=== PATIENT | male | born 1960 | race Caucasian/White ===

== ENCOUNTER 2019-04-13 13:34 | Emergency (ER) | payer OTHER ==
[2019-04-13] MEDS ORDERED: NS 1,000 ML IV ONE (14:01)
[2019-04-13] MEDS ORDERED: KETOROLAC 30 MG/1 ML SDV IVP ONE (14:01)
[2019-04-13] MEDS ORDERED: METOCLOPRAMIDE 10 MG/2 ML VIAL ONE (14:01)
[2019-04-13] MEDS ORDERED: METOCLOPRAMIDE 10 MG/2 ML VIAL IVP ONE (14:01)
[2019-04-13] MEDS ORDERED: DEXAMETHASONE 10 MG/ML VIAL IVP ONE (14:01)
--- NOTE | 2019-04-13 14:06 | EDPHY ---
H & P Stated Complaint: hx of migraine, migraine since last pm n/v Time Seen by Provider: 04/13/19 13:44 HPI/ROS: CHIEF COMPLAINT: Headache HISTORY OF PRESENT ILLNESS: 58-year-old male visiting for work from [place] complaining of a severe migraine headache for the last 20 hr. Patient states that he has had a long history of what he refers to as migraine headaches. They are bitemporal and retro-orbital headaches that typically improved with Excedrin migraine medications and a good night sleep. He has never visit to the emergency department previously for these headaches. He has not seen Neurology nor has he had any imaging studies previously. He does note that when he was in [place] 5 months ago he also had a significant migraine headache. Reports this headache is the usual character in location and type of pain. However, patient states he has never had 1 that has been persistent and has not had vomiting previously although he has had nausea previously. Patient has light sensitivity. Denies any recent head injury, fevers or chills, neck pain. Denies any shortness of breath. Denies diarrhea. Denies marijuana ingestion. REVIEW OF SYSTEMS: A comprehensive 10 system review of systems was reviewed and is otherwise negative aside from elements mentioned in the history of present illness and medical decision making. PAST MEDICAL HISTORY: Migraine type headaches. SOCIAL HISTORY: Nonsmoker. VITAL SIGNS Reviewed by me. GENERAL: Well-developed, well-nourished, resting in a dark room. Lying with his arm over his eyes. HEENT: Atraumatic. Eyes: PERRL, EOMI, no nystagmus. No icterus. No injection. Mouth: moist mucous membranes. No erythema or lesions. Neck: No meningitis. Nontender to palpation. No adenopathy. Negative Kernig's. Negative Brudzinski's. No meningismus. LUNGS: Clear to auscultation bilaterally, no wheezes, rhonchi or rales. CARDIAC: Regular rate and rhythm, no rubs, murmurs or gallops. ABDOMEN: Soft, nontender, nondistended, bowel sounds normal. BACK: No CVA tenderness. EXTREMITIES: No trauma. No edema. Range of motion is normal throughout. NEURO: Alert and oriented, cranial nerves II through XII are intact. Motor strength 5 over 5 in all major muscle groups. Sensation intact to light touch. Normal gait. SKIN: Warm and dry, no rash. PSYCHIATRIC: Normal mentation, no agitation. - Personal History Current Tetanus/Diphtheria Vaccine: No Current Tetanus Diphtheria and Acellular Pertussis (TDAP): No - Medical/Surgical History Hx Asthma: No Hx Chronic Respiratory Disease: No Hx Diabetes: No Hx Cardiac Disease: No Hx Renal Disease: No Hx Cirrhosis: No Hx Alcoholism: No Hx HIV/AIDS: No Hx Splenectomy or Spleen Trauma: No - Social History Smoking Status: Never smoked Constitutional: Initial Vital Signs Temperature (C) 36.9 C 04/13/19 13:37 Heart Rate 95 04/13/19 13:37 Respiratory Rate 16 04/13/19 13:37 Blood Pressure 162/108 H 04/13/19 13:37 O2 Sat (%) 98 04/13/19 13:37 O2 Delivery Mode Room Air Allergies/Adverse Reactions: tetanus and diphtheria toxoids Allergy (Verified 04/13/19 13:43) Home Medications: Medication Instructions Recorded Hydrocodone/APAP 5/325 [[place] 1 tab PO Q6H PRN #10 tab 04/13/19 5/325 (RX)] Promethazine HCl [Phenergan 12.5mg 12.5 mg PO Q8 PRN #10 tablet 04/13/19 tab] Medical Decision Making - Diagnostics Imaging Results: Imaging Impressions Head CT 04/13/19 14:01 Impression: Normal. Results called and discussed with Latosha Cardenas MD at 04/13/2019 14:35. Imaging: Discussed imaging studies w/ outbound call center representative Radiologist ED Course/Re-evaluation: Patient retching during my examination. IV was placed and patient received Toradol, Reglan, Benadryl, and Decadron. Head CT ordered. Head CT was negative for any acute findings. Patient was reexamined at 2:40 a.m.: Reports he is feeling significantly improved does still have residual headache rated at 4 to 5/10. Patient received Dilaudid IV. He was discharged in the care of a friend. He was advised to proceed back to his hotel, and get a good sleep. He was given short course prescription of [place] as well as a prescription for Phenergan to use as needed for any residual headache discomfort. He will follow up with a neurologist in his primary care physician on return to [place]. Please see the discharge instructions. Differential Diagnosis: After history was obtained, and the physical exam performed, a differential for headache was considered including, but not limited to, subarachnoid hemorrhage, migraine headache, tension headache and infectious causes such as meningitis, sinusitis, encephalitis. - Data Points Medications Given: Discontinued Medications Dexamethasone (Decadron Injection) 10 mg IVP EDNOW ONE Stop: 04/13/19 14:02 Last Admin: 04/13/19 14:09 Dose: 10 mg Diphenhydramine HCl (Benadryl Injection) 25 mg IVP EDNOW ONE Stop: 04/13/19 14:02 Last Admin: 04/13/19 14:08 Dose: 25 mg Hydromorphone HCl (Dilaudid) 1 mg IVP EDNOW ONE Stop: 04/13/19 14:41 Last Admin: 04/13/19 14:47 Dose: 1 mg Sodium Chloride (Ns) 1,000 mls @ 0 mls/hr IV ONCE ONE; Wide Open PRN Reason: Protocol Stop: 04/13/19 14:02 Last Admin: 04/13/19 14:07 Dose: 1,000 mls Ketorolac Tromethamine (Toradol) 30 mg IVP EDNOW ONE Stop: 04/13/19 14:02 Last Admin: 04/13/19 14:10 Dose: 30 mg Metoclopramide HCl (Reglan Injection) 10 mg IVP EDNOW ONE Stop: 04/13/19 14:02 Last Admin: 04/13/19 14:04 Dose: 10 mg Departure - Departure Disposition: Home, Routine, Self-Care Clinical Impression: Headache Qualifiers: Headache type: other headache syndrome Qualified Code(s): G44.89 - Other headache syndrome Condition: Good Instructions: Migraine Headache (ED), Acute Headache (ED) Additional Instructions: You been given a prescription for [place] which is a narcotic. You may use this if needed for any residual headache pain. You have also been given a prescription for Phenergan to use as needed for residual nausea. I recommend that you go straight home, to bed, and get a good sleep. Please follow up with your primary care physician and/or neurologist when you return to [place] for further evaluation of your migraine headaches. It may be useful to discuss and migraine abortive type medication to have with you if you come to [place] again. Please stay well-hydrated and drink plenty of fluid. Avoid caffeine, alcohol, marijuana products. Referrals: NONE *PRIMARY CARE P,. [Primary Care Provider] - As per Instructions Prescriptions: Hydrocodone/APAP 5/325 [[place] 5/325 (RX)] 1 tab PO Q6H PRN #10 tab PRN Reason: Pain Promethazine HCl [Phenergan 12.5mg tab] 12.5 mg PO Q8 PRN #10 tablet PRN Reason: nausea
[2019-04-13] MEDS ORDERED: HYDROmorphONE/DILAUDID 2 MG/ML INJ IVP ONE (14:40)
[2019-04-13 15:40] VITALS: BP 122/61
== END 2019-04-13 15:38 | disposition home or self-care (01) ==
DX: G44.89 Other headache syndrome (principal); E86.9 Volume depletion, unspecified
CPT/HCPCS: 96374; J1100; J1170; J1200; J1885; J2765